=== PATIENT | male | born 1985 | race Two or more races ===

== ENCOUNTER 2018-11-03 15:50 | Emergency (ER) | payer MEDICAID ==
[~2018-11-03] VITALS: Ht 175.3 cm; Wt 79.4 kg
[2018-11-03 16:01] VITALS: BP 136/101
[2018-11-03 17:16] LABS: Basophils # (auto) 0.1 uL; Basophils % (auto) 1.1 % (0.0-2.0); Eosinophils # (auto) 0.1 uL; Eosinophils % (auto) 1.1 % (0.0-7.0); Hematocrit 46.4 % (41.0-53.0); Hemoglobin 16.3 g/dL (13.5-17.5); Lymphocytes # (auto) 3.4 uL; Mean Corpuscular Hemoglobin 31.1 pg (28.0-32.0); Mean Corpuscular Hgb Conc. 35.1 g/dL (32.0-36.0); Mean Corpuscular Volume 88.5 fL (80.0-100.0); Monocytes # (auto) 0.9 uL; Monocytes % (auto) 10.5 % (0.0-12.0); Neutrophils # (auto) 4.3 uL; Neutrophils % (auto) 48.3 % (37.0-80.0); Nucleated Red Blood Cells % 0.1 %; Platelet Count (auto) 228 10^3/uL (140-450); Red Blood Cells 5.24 10^6/uL (4.5-5.90); Red Cell Distribution Width 13.4 % (11.8-14.3); White Blood Cell 8.8 10^3/uL (4.4-10.8)
[2018-11-03 17:34] LABS: Chloride 106 mmol/L (98-107); Sodium 139 mmol/L (136-145)
[2018-11-03 17:39] LABS: Alanine Aminotransferase 95 U/L (16-61); Albumin 3.8 g/dL (3.4-5.0); Amylase 72 U/L (25-115); Anion Gap 7 (5-15); BUN/Creatinine Ratio 14.7; Blood Urea Nitrogen 19 mg/dL (7-18); Calcium 8.5 mg/dL (8.5-10.1); Carbon Dioxide 26 mmol/L (21-32); GFR African American > 60 mL/min; GFR Non-African American > 60 mL/min; Glucose 87 mg/dL (74-106); Lipase 145 U/L (73-393); Magnesium 2.2 mg/dL (1.6-2.6)
[2018-11-03 17:41] LABS: Alkaline Phosphatase 100 U/L (45-117); Aspartate Aminotransferase 37 U/L (15-37); Bilirubin, Total 0.4 mg/dL (0.2-1.0); Total Protein 7.9 g/dL (6.4-8.2)
[2018-11-04 01:55] LABS: Urine WBC None Seen /hpf (0 - 3)
[2018-11-04 02:08] LABS: Urine Bacteria FEW /hpf (None Seen); Urine Blood Negative /uL (Negative); Urine Specific Gravity 1.023 (1.001-1.035)
== END 2018-11-03 20:53 | disposition left against medical advice (07) ==
LOC: ER 15:57
DX: R10.11 Right upper quadrant pain (principal); R10.31 Right lower quadrant pain; Z53.21 Procedure and treatment not carried out due to patient leaving prior to being seen by health care provider
CPT/HCPCS: 36415; 74176; 80053; 81001; 82150; 83690; 83735; 85025; J7030